=== PATIENT | male | born 1950 | race Caucasian/White ===

== ENCOUNTER 2018-02-10 07:20 | Day surgery (SDC) | payer MEDICARE ==
[~2018-02-10] VITALS: Ht 180.3 cm; Wt 90.2 kg
[~2018-02-10 07:20] MED LIST: ASPI-496 PO; BACITRACIN 50,000 UNIT ONE; BUPIVACAINE/PF-EPI 0.5% 1:200K ONE; FOLI1TAB66 PO; LISI1TAB3 PO; THROMBIN 5,000 UNIT VIAL TP ONE; TRIA10.8 NS
[2018-02-10] MEDS ORDERED: VANCOMYCIN 1,000 MG ONE (07:53)
[2018-02-10] MEDS ORDERED: BUPIVACAINE/PF 0.5% ONE (07:53)
[2018-02-10] MEDS ORDERED: ACETAMINOPHEN 500 MG TABLET PO ONE (08:30)
[2018-02-10] MEDS ORDERED: FENTANYL PF 250 MCG/5ML ONE (08:30)
[2018-02-10] MEDS ORDERED: MIDAZOLAM 1 MG/ML, 2ML ONE (08:30)
[2018-02-10] MEDS ORDERED: OXYcodone IR 5MG TABLET PO ONE (08:30)
[2018-02-10] MEDS ORDERED: FAMOTIDINE 20 MG TABLET PO ONE (08:30)
[2018-02-10 08:44] VITALS: BP 183/83
[2018-02-10] MEDS ORDERED: CEFAZOLIN 1,000 MG ONE ×2 (09:26)
[2018-02-10] MEDS ORDERED: KETOROLAC 30 MG/1 ML ONE (09:27)
[2018-02-10] MEDS ORDERED: ONDANSETRON 2MG/ML, 2ML ONE (09:27)
[2018-02-10] MEDS ORDERED: DEXAMETHASONE 4 MG/ML, 1ML ONE ×2 (09:27)
[2018-02-10] MEDS ORDERED: PROPOFOL 10 MG/ML, 20ML ONE ×2 (09:27)
[2018-02-10] MEDS ORDERED: GLYCOPYRROLATE 0.2MG/1ML, 5ML ONE (09:27)
[2018-02-10] MEDS ORDERED: SUCCINYLCHOLINE 20 MG/ML, 10ML ONE (09:30)
[2018-02-10] MEDS ORDERED: PROMETHAZINE 25 MG/ML, 1ML IV PRN (10:00)
[2018-02-10] MEDS ORDERED: OXYcodone 5 MG/5 ML ORAL.SOL UDC PO PRN (10:00)
[2018-02-10] MEDS ORDERED: HYDROmorphone 1 MG/ML, 1ML IV PRN (10:00)
[2018-02-10] MEDS ORDERED: FENTANYL PF 100 MCG/2ML IV PRN (10:00)
== END 2018-02-10 12:50 | disposition home or self-care (01) ==
LOC: OUT 07:20
PROVIDERS: ATTEND Neurological Surgery
DX: M51.16 Intervertebral disc disorders with radiculopathy, lumbar region (principal); M48.061 Spinal stenosis, lumbar region without neurogenic claudication; M48.062 Spinal stenosis, lumbar region with neurogenic claudication; G43.909 Migraine, unspecified, not intractable, without status migrainosus; I10 Essential (primary) hypertension; Z98.890 Other specified postprocedural states; Z87.891 Personal history of nicotine dependence; Z79.82 Long term (current) use of aspirin; Z79.899 Other long term (current) drug therapy
CPT/HCPCS: 63030; 63035; 72100; J0330; J0690; J1100; J1885; J2250; J2405; J2704; J3010; J3370; J3490; C1729